=== PATIENT | female | born 1940 | race Caucasian/White ===

== ENCOUNTER 2018-12-28 13:02 | Emergency (ER) | payer OTHER ==
[~2018-12-28] VITALS: Ht 157.5 cm; Wt 77.1 kg
[2018-12-28] MEDS ORDERED: NEXIUM40 MG PO (13:24)
[2018-12-28] MEDS ORDERED: PAXIL10 MG PO (13:25)
[2018-12-28] MEDS ORDERED: NORVASC5 MG PO (13:25)
[2018-12-28] MEDS ORDERED: NYSTATIN1 EA10 TOP (13:25)
[2018-12-28] MEDS ORDERED: XANAX 0.5 MG0.5 MG PO (13:25)
[2018-12-28] MEDS ORDERED: NORCO 5-325 TA1 EACH PO (13:26)
[2018-12-28 13:58] LABS: ABSOLUTE BASOPHILS 0.1 thou/uL (0.0-0.2); ABSOLUTE EOSINOPHILS 0.1 thou/uL (0.0-0.7); ABSOLUTE LYMPHOCYTES 1.8 thou/uL (0.8-5.3); ABSOLUTE MONOCYTES 0.8 thou/uL (0.0-1.2); ABSOLUTE NEUTROPHILS 3.1 thou/uL (1.6-8.1); BASOPHILS 1.3 %; EOSINOPHILS 2.1 %; HEMATOCRIT 38.5 % (37.0-47.0); HEMOGLOBIN 12.7 gm/dL (12.0-15.0); LYMPHOCYTES 29.9 %; MCH 28.1 pg (26.0-34.0); MCHC 33.1 g/dL (28.0-37.0); MONOCYTES 14.2 %; MPV 7.8 fl. (7.2-11.1); NUCLEATED RBCS 0 /100WBC; PLATELET COUNT* 287 thou/uL (150-400); POLYS 52.5 %; RBC 4.53 mil/uL (4.20-5.00); RDW-CV 14.2 % (10.5-14.5); WBC 5.9 thou/uL (4.0-11.0)
[2018-12-28 14:06] LABS: ANION GAP 9 mmol/L (7-16); BUN 19 mg/dL (7-18); CALCIUM 9.2 mg/dL (8.5-10.1); CHLORIDE 105 mmol/L (98-107); CO2 26 mmol/L (21-32); GLUCOSE 122 mg/dL (70-99); POTASSIUM 4.1 mmol/L (3.5-5.1); SODIUM 140 mmol/L (136-145)
[2018-12-28 14:08] LABS: PROTIME 10.7 Seconds (9.20-11.50)
[2018-12-28 14:15] LABS: ALBUMIN 3.6 g/dL (3.4-5.0); ALKALINE PHOSPHATASE 71 U/L (46-116); LIPASE 161 U/L (73-393); SGOT 34 U/L (15-37); SGPT 27 U/L (30-65); TOTAL BILIRUBIN 0.4 mg/dL (<0.1-1.0); TOTAL PROTEIN 7.4 g/dL (6.4-8.2); TROPONIN-I LEVEL <0.06 ng/mL (<0.06)
--- NOTE | 2018-12-28 15:19 | EKG ---
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
[2018-12-28 15:42] LABS: URINE BILIRUBIN NEGATIVE (Negative); URINE BLOOD NEGATIVE (Negative); URINE CLARITY CLEAR; URINE COLOR YELLOW; URINE GLUCOSE-RANDOM NEGATIVE (Negative); URINE KETONES NEGATIVE (Negative); URINE LEUKOCYTES-REFLEX NEGATIVE (Negative); URINE PROTEIN NEGATIVE (Negative); URINE SPECIFIC GRAVITY 1.015 (1.005-1.030)
[2018-12-28 15:43] LABS: URINE NITRITE-REFLEX POSITIVE (Negative)
[2018-12-28 15:53] LABS: BACTERIA-REFLEX >30 Many /HPF (None Seen); HYALINE CASTS 0-3 Few /LPF (None Seen); MUCUS None Seen strn/LPF (None Seen); SQUAMOUS >10 Many /LPF (0-3)
[2018-12-28 15:54] LABS: CRYSTALS None Seen /LPF (None Seen); URINE RBC None Seen /HPF (0-2); URINE WBC-REFLEX 0-5 Rare /HPF (0-5)
[2018-12-28] MEDS ORDERED: KEFLEX500 M1 PO (16:20)
[2018-12-28 17:25] VITALS: BP 131/72
== END 2018-12-28 17:26 | disposition home or self-care (01) ==
LOC: M.ERS 13:02
PROVIDERS: Nurse Practitioner Family
DX: N39.0 Urinary tract infection, site not specified (principal); I10 Essential (primary) hypertension; Z85.3 Personal history of malignant neoplasm of breast; Z90.12 Acquired absence of left breast and nipple

== ENCOUNTER 2019-11-12 08:32 | Inpatient (IN) | payer MEDICARE ==
[2019-11-12] VITALS (48 sets, daily range): BP systolic 75–156; BP diastolic 39–106
[~2019-11-12] VITALS: Ht 154.9 cm; Wt 75.6 kg
[~2019-11-12 08:32] MED LIST: KEFLEX500 M1 PO; NEXIUM40 MG PO; NORCO 5-325 TA1 EAC2 PO; NORVASC5 MG PO; NYSTATIN1 EA10 TOP; PAXIL10 MG PO; XANAX 0.5 MG0.5 MG PO
--- NOTE | 2019-11-12 08:52 | NUR ---
RT AT BEDSIDE ADMINISTERING BREATHING TREATMENT.
[2019-11-12 08:55] LABS: ABSOLUTE BASOPHILS 0.2 thou/uL (0.0-0.2); ABSOLUTE EOSINOPHILS 0.2 thou/uL (0.0-0.7); ABSOLUTE LYMPHOCYTES 3.7 thou/uL (0.8-5.3); ABSOLUTE MONOCYTES 1.6 thou/uL (0.0-1.2); ABSOLUTE NEUTROPHILS 9.9 thou/uL (1.6-8.1); BASOPHILS 1.2 %; EOSINOPHILS 1.4 %; HEMATOCRIT 44.5 % (37.0-47.0); LYMPHOCYTES 23.7 %; MCH 29.3 pg (26.0-34.0); MCHC 33.8 g/dL (28.0-37.0); MCV 86.9 fL (80.0-100.0); MONOCYTES 10.1 %; MPV 7.6 fl. (7.2-11.1); NUCLEATED RBCS 0 /100WBC; PLATELET COUNT* 484 thou/uL (150-400); POLYS 63.6 %; RBC 5.12 mil/uL (4.20-5.00); WBC 15.5 thou/uL (4.0-11.0)
[2019-11-12 09:05] LABS: CALCIUM 8.5 mg/dL (8.5-10.1); CREATININE 0.8 mg/dL (0.6-1.3); POTASSIUM 3.6 mmol/L (3.5-5.1)
[2019-11-12 09:14] LABS: ALBUMIN 4.1 g/dL (3.4-5.0); MAGNESIUM 2.1 mg/dL (1.8-2.4); TOTAL BILIRUBIN 0.6 mg/dL (<0.1-1.0); TOTAL PROTEIN 8.8 g/dL (6.4-8.2)
[2019-11-12 09:15] LABS: BE -8.8 mmol/L (-2 to +3); PO2 82.2 mmHg (75.0-100.0)
[2019-11-12 09:17] LABS: pH 7.135 (7.340-7.450)
[2019-11-12 10:02] LABS: URINE BILIRUBIN NEGATIVE (Negative); URINE BLOOD NEGATIVE (Negative); URINE CLARITY CLEAR; URINE COLOR YELLOW; URINE GLUCOSE-RANDOM NEGATIVE (Negative); URINE KETONES NEGATIVE (Negative); URINE LEUKOCYTES-REFLEX NEGATIVE (Negative); URINE PROTEIN 1+ (Negative); URINE SPECIFIC GRAVITY >= 1.030 (1.005-1.030); URINE UROBILINOGEN 0.2 E.U./dl (0.2-1.0)
[2019-11-12 10:03] LABS: URINE NITRITE-REFLEX POSITIVE (Negative)
[2019-11-12 10:10] LABS: SQUAMOUS 0-3 Few /LPF (0-3); URINE WBC-REFLEX 6-15 Few /HPF (0-5)
[2019-11-12 10:10] LABS: APTT 25.7 Seconds (25.0-31.3); PROTIME 10.7 Seconds (9.20-11.50)
[2019-11-12 10:11] LABS: CRYSTALS None Seen /LPF (None Seen); HYALINE CASTS 4-10 Moderate /LPF (None Seen); MUCUS 0-3 Light strn/LPF (None Seen); URINE RBC 0-2 Rare /HPF (0-2)
--- NOTE | 2019-11-12 10:16 | NUR ---
AT 09, DR. SOLANO AT BEDSIDE TO BEGIN INTUBATION ON PT BREATHING TREATMENT DID NOT HELP PT; O2 SAT ON NON REBREATHER AT 15 LITERS WAS 90%. 10 MG OF ETOMIDATE ADMINISTERED BY THIS NURSE AT 0929 WELL 100 MG OF SUCCINYLCHOLINE THROUGH IV IN RIGHT HAND. 7.5 ET TUBE PLACED 21 AT THE LIP BY DR. SOLANO AT 0930. GOOD COLOR CHANGE ON CO2 SENSOR. VITALS AT 09: 146/78, HR 87, RR 34, AND 87% BVM. AFTER INTUBATION PT O2 INCREASED TO 97% ON VENTILATOR. ONCE FRANKLIN WAS PLACED, PT STARTED BITING ET TUBE. THIS NURSE ADMINISTERED 5 MG OF VERSED AT 0942. RT AT BEDSIDE IN-LINE SUCTIONING, PINK THIN FLUIDS RETURNED. AT 0946, PT CONTINUING TO BITE TUBE AND MARLOW IT. ETOMIDATE [address] MUKHERJEE VERBAL ORDERS. VITAL SIGNS AT 0950: 97/60, HR 106, 95% ON VENT, AND RR 23. VERSED DRIP ARRIVED AT 0956, THIS NURSE STARTED DRIP AT 5 MG/HR. DUE TO LOW BP, IV FLUIDS STARTED WIDE OPEN AT THIS TIME WELL. PT GIVEN WARM BLANKET AND IS LAYING IN BED, HOB SEMI FOWLERS, EYES CLOSED.
--- NOTE | 2019-11-12 10:16 | NUR ---
DR. SOLANO IN ROOM BEGINNING CENTRAL LINE PLACEMENT.
--- NOTE | 2019-11-12 10:35 | NUR ---
DR. SOLANO PLACED CENTRAL LINE, RIGHT SIDE. BLOOD RETURN POSITIVE. RADIOLOGY CALLED FOR CONFIRMATION OF CENTRAL LINE PLACEMENT.
--- NOTE | 2019-11-12 10:55 | NUR ---
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 PT MOVING EXTREMITIES AND BUCKING TUBE. SOFT RESTRAINTS APPLIED TO BILATERAL UPPER EXTREMITIES.
--- NOTE | 2019-11-12 11:11 | NUR ---
AT 0830 RECEIVED REPORT FROM EMT-P AT [facility]. PT HAS A NRB MASK IN PLACE WITH LABORED BREATHING. PT O2 SAT REPORTED TO BE IN THE 80'S ON SCENE. PT IS ONLY ABLE TO SPEAK IN ONE WORD SENTENCES. ASSISTED WITH TRIAGE PLACING PT IN A GOWN AND DOING VS. PT O2 SAT ON NRB MASK AT 15LPM IS 87%. DR. SOLANO NOTIFIED.
[2019-11-12 11:19] LABS: INFLUENZA A ANTIGEN Negative (Negative); INFLUENZA B ANTIGEN Negative (Negative)
--- NOTE | 2019-11-12 11:59 | NUR ---
REPORT GIVEN TO KEVIN WAY WHO IS TO ASSUME PT CARE INPATIENT NURSE.
[2019-11-12 14:50] LABS: BE -5.4 mmol/L (-2 to +3); PCO2 34.8 mmHg (35.0-45.0); PO2 82.4 mmHg (75.0-100.0); pH 7.361 (7.340-7.450)
--- NOTE | 2019-11-12 15:37 | 2DMMODE ---
[place] [address] 2 D/M-MODE ECHOCARDIOGRAM Name: BREANNA NUNEZ Mely Room: [address] IN .R.#: [id number] Admission: 11/12/19 Attend Phys: [place] Cardona, Discharge: Date of : 38 Date of Service: 11/12/19 1536 Report #: [id number] THIS REPORT FOR: cc: Nydia Henning Maggie M. DO Blick, David R. MD [facility] ~ APPROVED REPORT Study performed: 11/12/2019 13:56:35 EXAM: Comprehensive 2D, Doppler, and color-flow Echocardiogram Patient Location: In-Patient Room #: 006 Status: routine BSA: 1.72 HR: 68 bpm BP: 97/59 mmHg Rhythm: NSR Other Information Study Quality: Good Indications Respiratory failure 2D Dimensions IVSd: 9.12 (7-11mm) LVOT Diam: 21.88 (18-24mm) LVDd: 52.11 mm PWd: 9.08 (7-11mm) Ascending Ao: 35.16 (22-36mm) LVDs: 41.86 (25-40mm) Aortic Root: 29.81 mm Volumes Left Atrial Volume (Systole) LA ESV Index: 53.50 mL/m2 Aortic Valve AoV Peak Stevan.: 1.61 m/s AO Peak Gr.: 10.37 mmHg LVOT Max P.14 mmHg AO Mean Gr.: 5.91 mmHg LVOT Mean P.43 mmHg LVOT Max V: 0.89 m/s AO V2 VTI: 32.93 cm LVOT Mean V: 0.54 m/s DARWIN (VTI): 2.34 cm2 LVOT V1 VTI: 20.55 [place] [address] 2 D/M-MODE ECHOCARDIOGRAM Name: BREANNA NUNEZ Room: [address] IN .R.#: [id number] Admission: 11/12/19 Attend Phys: [place] Cardona, Discharge: Date of : 38 Date of Service: 11/12/19 1536 Report #: [id number] Mitral Valve MV Mean Gr.: 5.57 mmHg E/A Ratio: 1.01 MV Decel. Time: 303.33 ms MV E Max Stevan.: 1.46 m/s MV PHT: 87.97 ms MVA (PHT): 2.50 cm2 TDI E/Lateral E': 24.33 E/Medial E': 29.20 Medial E' Stevan.: 0.05 m/s Lateral E' Stevan.: 0.06 m/s Pulmonary Valve PV Peak Stevan.: 0.98 m/s PV Peak Gr.: 3.82 mmHg Tricuspid Valve RAP Estimate: 5.00 mmHg TR Peak Gr.: 22.64 mmHg RVSP: 27.00 mmHg PA Pressure: 27.00 mmHg Left Ventricle The left ventricle is normal size. severe hypokinesis of the distal anteroseptal wall and apex There is normal left ventricular wall thickness. Left ventricular systolic function is severely decreased. LVEF is 25-30%. This study is not technically sufficient to allow evaluation of the LV diastolic function. Right Ventricle The right ventricle is normal size. The right ventricular systolic function is normal. Atria Left atrium is severely dilated. The right atrium size is normal. Aortic Valve The Aortic valve is sclerotic. Trace aortic regurgitation. There is no aortic valvular stenosis. Mitral Valve There is mitral annular calcification. Mild mitral regurgitation. No evidence of mitral valve stenosis. Tricuspid Valve The tricuspid valve is normal in structure. [place] [address] 2 D/M-MODE ECHOCARDIOGRAM Name: BREANNA NUNEZ Room: [address] IN [facility]#: [id number] Admission: 11/12/19 Attend Phys: [place] Cardona, Discharge: Date of : 38 Date of Service: 11/12/19 1536 Report #: [id number] Pulmonic Valve The pulmonary valve is normal in structure. Mild pulmonic regurgitation. Great Vessels The aortic root is normal in size. IVC is not well visualized. Pericardium There is no pericardial effusion. <Conclusion> LVEF is 25-30%. severe hypokinesis of the distal anteroseptal wall and apex Left atrium is severely dilated. The Aortic valve is sclerotic. Mild mitral regurgitation. <ELECTRONICALLY SIGNED> By: Amos Car MD, FACC 11/12/19 1536 1536 1536 Amos Car MD, FACC /INF
--- NOTE | 2019-11-12 16:07 | EKG ---
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
--- NOTE | 2019-11-12 18:36 | NUR ---
PT REMAINS INTUBATED PER ORDERED SETTINGS.SEDATED WITH VERSED AND PRECEDEX PER PROTOCOL.PT BP SOFT SHORTLY AFTER ARRIVING TO THE UNIT-DOPAMINE STARTED PER ORDERS.ECHO COMPLETED.CARDIOLOGY CONSULT.40 MG LASIX ORDERED-ONLY 20 MG GIVEN DO TO PT BP NOT TOLERATING IT.NO APPARENT PAIN.MRSA SWAB COLLECTED.UA COLLECTED.SPUTUM COLLECTED.PT NOT TOLERATING BEING TURNED Q2 HOUR- BP DROPS.COVID PRECAUTIONS IN MAINTAINED UNTIL RESULTS COMEBACK.WILL CONTINUE TO MONITOR FOR DURATION OF SHIFT.ADMISSION COMPLETED TO THE BEST OF ABILITY DUE TO PT NOT BEING ABLE TO COMMUNICATE AND NO VISITORS ALLOWED.
[2019-11-13] VITALS (70 sets, daily range): BP systolic 95–122; BP diastolic 53–76
[2019-11-13 05:20] LABS: HEMATOCRIT 36.1 % (37.0-47.0); MCH 28.6 pg (26.0-34.0); MPV 7.5 fl. (7.2-11.1); NUCLEATED RBCS 0 /100WBC; RDW-CV 14.6 % (10.5-14.5); WBC 11.6 thou/uL (4.0-11.0)
[2019-11-13 05:48] LABS: ANION GAP 11 mmol/L (7-16); BUN 19 mg/dL (7-18); CALCIUM 8.1 mg/dL (8.5-10.1); CHLORIDE 105 mmol/L (98-107); CHOLESTEROL 175 mg/dL (<200); CO2 25 mmol/L (21-32); CREATININE 0.9 mg/dL (0.6-1.3); GLUCOSE 180 mg/dL (70-99); HDL CHOLESTEROL 41 mg/dL (>40); LDL CHOLESTEROL 118 mg/dL (<100); MAGNESIUM 1.6 mg/dL (1.8-2.4); PHOSPHORUS* 2.7 mg/dL (2.5-4.9); POTASSIUM 3.2 mmol/L (3.5-5.1); SODIUM 141 mmol/L (136-145); TC:HDL 4.3 Ratio (Not establshd); TRIGLYCERIDE 81 mg/dL (<150); TROPONIN-I LEVEL 0.13 ng/mL (<0.06); VLDL 16 mg/dL (<40)
[2019-11-13 05:49] LABS: SERUM ASSESSMENT Clear
[2019-11-13 05:51] LABS: HEMOGLOBIN 12.3 gm/dL (12.0-15.0); PLATELET COUNT* 304 thou/uL (150-400)
--- NOTE | 2019-11-13 06:12 | NUR ---
Pt remains intubated; impulsive at times, especially when coughing. VSS. Dopamine gtt weaned from 8 to 4 mcg. Precedex increased to 0.8 mcg. Versed gtt remains at 2 mg/hr. Good output overnight from adame, and BP remained stable throughout shift. Breath snds clear, and CXR this am shows improvement from yesterday. TF at 20 ml/hr; residuals of 55, 165, and 125 overnight. Hypoactive bowel snds. Running T of 100.6 axillary at 0310 this am. Will continue to monitor.
[2019-11-13 07:03] LABS: ABSOLUTE LYMPHOCYTES 0.8 thou/uL (0.8-5.3); ABSOLUTE MONOCYTES 0.2 thou/uL (0.0-1.2); ABSOLUTE NEUTROPHILS 10.6 thou/uL (1.6-8.1); PLATELET ESTIMATE ADEQUATE
--- NOTE | 2019-11-13 07:42 | CON ---
[address] [address] CONSULTATION Name: BREANNA NUNEZ Room: [address] ADM IN M.R.#: [id number] Admission: 11/12/19 Attend Phys: [place] Cardona MD Discharge: Date of : 38 Report #: [id number] THIS REPORT FOR: //name// cc: Nydia Henning Maggie M. DO ~ THIS REPORT FOR: //name// CC: [place] Henning DATE OF SERVICE: 11/12/2019 INFECTIOUS DISEASE CONSULTATION ATTENDING PHYSICIAN: [place] Cardona MD REASON FOR EVALUATION: Severe pneumonitis, complicated by respiratory failure. HISTORY OF PRESENT ILLNESS: Chart reviewed, the patient examined. This is a 78-year-old woman with history of breast cancer, no known lung disease, who had progressive dyspnea over the course of the last 2 days. She presented in urgent fashion and proceeded to have respiratory collapse, required emergent intubation. She is seen in the ICU. She is not responsive. She described as bloody sputum. It is not clear if she has had any fevers. Denies any particular exposure history. Additional evaluation, there is mildly elevated white count of 15.5. ABGs showed marked acidemia with pH 7.135, pCO2 of 65, and pO2 of 82.2 on a nonrebreather. Lactic acid was elevated at 3.6. Urinalysis is fairly unremarkable. Chest x-ray did show bilateral pulmonary infiltrates. Influenza antigen was negative and marginal urine output. She is empirically started on therapy, given azithromycin, piperacillin and tazobactam. MEDICATIONS: Include pantoprazole, enoxaparin, and ondansetron. PAST MEDICAL HISTORY: As described above, includes breast cancer with left mastectomy, hypertension, and cataracts. SOCIAL HISTORY: Nonsmoker. FAMILY HISTORY: Noncontributory. REVIEW OF SYSTEMS: Not obtainable. PHYSICAL EXAMINATION: GENERAL: She is critically ill. She is seen in the ICU. She is intubated in supine position, appears somewhat chronically ill. VITAL SIGNS: Temperature 97.6, pulse 81, respirations 18, blood pressure 97/59[place] [address] CONSULTATION Name: BERANNA NUNEZ Room: [address]#: [id number] Admission: 11/12/19 Attend Phys: [place] Cardona MD Discharge: Date of : 38 Report #: [id number] SKIN: Warm, dry, no rashes. HEENT: ET OG in place. NECK: Supple. LUNGS: Scattered coarse breath sounds. HEART: Regular. I do not appreciate murmur. ABDOMEN: Soft, nontender, and nondistended. EXTREMITIES: No cyanosis. GENITOURINARY AND RECTAL: Deferred. LABORATORY DATA: As described above. Initial lactic acid 1.6 and repeat was 1.2. Troponin is 0.16. Chest x-ray showed peripheral infiltrates bilaterally. Influenza antigen was negative. Electrolytes: Sodium 142, potassium 3.6, chloride 105, bicarbonate 26, anion gap of 11, and BUN and creatinine 17 and 0.8. Did have elevated AST of 43, ALT of 29, total protein 8.8, and albumin 4.1. CBC: White count of 15.5, H and H 15.0 and 44.5, and platelets of 484. ASSESSMENT AND PLAN: Severe pneumonitis, complicated by respiratory failure. This certainly can exclude COVID based on the clinical presentation, although it was a fairly abrupt onset. Continue broad-spectrum antimicrobial therapy including coverage for bacterial pathogens. Await COVID results. The turn arounds have been somewhat quicker last 24 hours. Continue supportive measures. Certainly, she is critically ill and would have expected prolonged recovery. <ELECTRONICALLY SIGNED> By: Reji Dean MD 11/13/19 0742 1316 1336Jobeba Dean MD /nt
[2019-11-13 10:24] LABS: BE 0.1 mmol/L (-2 to +3); PCO2 32.5 mmHg (35.0-45.0); PO2 69.5 mmHg (75.0-100.0); pH 7.469 (7.340-7.450)
--- NOTE | 2019-11-13 18:12 | NUR ---
PT REMAINS INTUBATED PER ORDERED SETTING.SEDATED WITH VERSED AND PRECEDEX.PT REMAINS ON DOPAMINE FOR PRESSURE SUPPORT.PT HAD SUCCESSFUL WEANING TRIAL AND EXTUBATED @ 1720.PT PLACED ON 4L O2 NC WITH O2 SAT 97%.PT TO REMAINS NPO UNTIL 2119 THEN WILL ADVANCE TO ICE CHIPS TO START.PT RECEIVED LASIX THIS SHIFT WITH ADEQUATE OUTPUT.CALL LIGHT AND FALL PRECAUTIONS IN PLACE.WILL CONTINUE TO MONITOR FOR DURATION OF SHIFT.
[2019-11-14] VITALS (27 sets, daily range): BP systolic 101–134; BP diastolic 33–76
[2019-11-14 02:06] LABS: GLYCOHEMOGLOBIN (HGB A1C) 5.9 % (4.8-5.6)
[2019-11-14 04:03] LABS: ABSOLUTE BASOPHILS 0.1 thou/uL (0.0-0.2); ABSOLUTE LYMPHOCYTES 1.8 thou/uL (0.8-5.3); ABSOLUTE MONOCYTES 1.1 thou/uL (0.0-1.2); ABSOLUTE NEUTROPHILS 8.3 thou/uL (1.6-8.1); BASOPHILS 0.5 %; EOSINOPHILS 0.2 %; HEMATOCRIT 33.7 % (37.0-47.0); HEMOGLOBIN 11.2 gm/dL (12.0-15.0); LYMPHOCYTES 15.7 %; MCH 28.2 pg (26.0-34.0); MCHC 33.4 g/dL (28.0-37.0); MCV 84.4 fL (80.0-100.0); MONOCYTES 9.8 %; MPV 7.6 fl. (7.2-11.1); NUCLEATED RBCS 0 /100WBC; PLATELET COUNT* 266 thou/uL (150-400); POLYS 73.8 %; RBC 3.99 mil/uL (4.20-5.00); RDW-CV 14.4 % (10.5-14.5); WBC 11.3 thou/uL (4.0-11.0)
[2019-11-14 04:24] LABS: ALBUMIN 2.9 g/dL (3.4-5.0); CALCIUM 7.8 mg/dL (8.5-10.1); CREATININE 0.8 mg/dL (0.6-1.3); POTASSIUM 3.1 mmol/L (3.5-5.1); TOTAL BILIRUBIN 0.6 mg/dL (<0.1-1.0); TOTAL PROTEIN 6.4 g/dL (6.4-8.2)
[2019-11-14 11:38] LABS: BE -2.1 mmol/L (-2 to +3); PCO2 37.8 mmHg (35.0-45.0); PO2 85.1 mmHg (75.0-100.0); pH 7.392 (7.340-7.450)
--- NOTE | 2019-11-14 17:06 | NUR ---
PT IS A/O X4,PT HAS BEEN TACHYPNEIC IN THE 30-40s THROUGHOUT WHOLE SHIFT.PHYSICIAN NOTIFIED THIS AM WITH NEW ORDERS RECEIVED.PT GIVEN 80 MG LASIX IN TOTAL ON THIS SHIFT WITH ADEQUATE OUTPUT.ANXIETY MEDICATIONS ORDERED.NO C/O PAIN.POTASSIUM REPLACED.PT TOLERATING CLEAR LIQUIDS AND SWALLOWING PILLS.COVID PRECAUTIONS MAINTAINED UNTIL RESULTS COMEBACK.CALL LIGHT AND FALL PRECAUTIONS IN PLACE.WILL CONTINUE TO MONITOR FOR DURAITON OF SHIFT.
[2019-11-15] VITALS (18 sets, daily range): BP systolic 105–133; BP diastolic 57–81
[2019-11-15 04:50] LABS: ABSOLUTE BASOPHILS 0.1 thou/uL (0.0-0.2); ABSOLUTE EOSINOPHILS 0.1 thou/uL (0.0-0.7); ABSOLUTE MONOCYTES 0.9 thou/uL (0.0-1.2); ABSOLUTE NEUTROPHILS 5.6 thou/uL (1.6-8.1); BASOPHILS 1.3 %; EOSINOPHILS 1.4 %; HEMATOCRIT 34.7 % (37.0-47.0); HEMOGLOBIN 11.7 gm/dL (12.0-15.0); LYMPHOCYTES 22.7 %; MCH 28.4 pg (26.0-34.0); MCHC 33.5 g/dL (28.0-37.0); MCV 84.8 fL (80.0-100.0); MONOCYTES 10.6 %; MPV 7.3 fl. (7.2-11.1); NUCLEATED RBCS 0 /100WBC; PLATELET COUNT* 261 thou/uL (150-400); RDW-CV 14.6 % (10.5-14.5); WBC 8.8 thou/uL (4.0-11.0)
[2019-11-15 05:35] LABS: ALBUMIN 3.2 g/dL (3.4-5.0); CREATININE 0.9 mg/dL (0.6-1.3); POTASSIUM 3.3 mmol/L (3.5-5.1); TOTAL BILIRUBIN 0.9 mg/dL (<0.1-1.0)
--- NOTE | 2019-11-15 07:02 | NUR ---
PT. PROGRESSING WELL TOWARDS GOALS. HAS REMAINED ALERT AND ORIENTED, PLEASANT. 4L O2. TOLERATING THIN LIQUIDS AND PO MEDS WELL WITHOUT DIFFICULTY, DIET ADVANCED TO REGULAR. PT. IS ABLE TO TURN SELF WITH REMINDER TO SHIFT WEIGHT. SINUS RHYTHM WITH BBB. REPORT GIVEN TO ONCOMING SHIFT.
--- NOTE | 2019-11-15 10:58 | CON ---
[address] [address] CONSULTATION Name: BREANNA NUNEZ Room: [address] IN M.R.#: [id number] Admission: 11/12/19 Attend Phys: [place] Cardona MD Discharge: Date of : 38 Report #: [id number] THIS REPORT FOR: //name// cc: Nydia Henning Maggie M. DO ~ THIS REPORT FOR: //name// CC: [place] Henning DO DATE OF SERVICE: 11/12/2019 CARDIOLOGY CONSULTATION HISTORY OF PRESENT ILLNESS: The patient is a 78-year-old single white female who was brought to the Emergency Room today complaining of being short of breath. The patient has no previous history of heart disease. The history is obtained from the patient's son. There are no old records available. She apparently has been short of breath for the past 2 days. She has been weak and sleeps a lot. She woke her son up this morning complained of being short of breath. When paramedics received the patient, her saturation was only 7%. She was brought to the [facility] by ambulance. Because of respiratory distress, she was intubated. I was asked to see her for further evaluation and treatment. According to family, she has no history of myocardial infarction, chest pain, palpitations or recent syncope or edema. She has not been exposed to anyone having problems at this time. PAST MEDICAL HISTORY: She has had a previous left mastectomy for breast cancer. She has a history of hypertension, cataract extraction. MEDICATIONS: Include Nexium, amlodipine, Xanax, Paxil. ALLERGIES: She has no known drug allergies. FAMILY HISTORY: Negative for heart disease. SOCIAL HISTORY: She is , lives with son in [place]. No smoking. Rarely drinks alcohol. REVIEW OF SYSTEMS: No history of stroke, asthma, liver disease, kidney disease. She does have incontinence. No chronic skin condition. PHYSICAL EXAMINATION: GENERAL: Revealed an elderly female lying in bed. She was on a ventilator. VITAL SIGNS: Her blood pressure 130/70, her pulse is 90. [place] [address] CONSULTATION Name: BREANNA NUNEZ Room: [address]#: [id number] Admission: 11/12/19 Attend Phys: [place] Cardona MD Discharge: Date of : 38 Report #: [id number] HEENT: She is anicteric. Conjunctivae are pink. Mucous membranes were moist. NECK: Veins do not appear distended. CHEST: Clear to auscultation. CARDIOVASCULAR: Regular rate and rhythm, no murmur. ABDOMEN: Soft. EXTREMITIES: Had no edema. Dorsalis pedis pulse cannot be palpated. SKIN: Cool and dry. RADIOLOGICAL DATA: She has not had an ECG at this time. Her chest x-ray showed bilateral pulmonary infiltrates. LABORATORY WORK: Sodium 142, BUN 17, creatinine 0.8. Liver function studies were normal. Troponin is 0.16. BNP 1600. Her white blood cell count 15.5, hemoglobin 15. Echocardiogram at the bedside today showed an ejection fraction only 30% with anteroapical hypokinesis. IMPRESSION AND RECOMMENDATIONS: 1. Flash pulmonary edema. Recommend Lasix. 2. History of breast cancer. 3. Hypertension. The patient is on a calcium mehran. 4. Elevated blood sugar. Rule out diabetes. <ELECTRONICALLY SIGNED> By: Amos Car MD, FACC 11/15/19 1058 1503 1517Datrung Car MD, FACC /nt
--- NOTE | 2019-11-15 15:19 | NUR ---
ICU ROUNDING: CM SPOKE TO THE RN IN-CHARGE OF THE PT TO DISCUSS THE PT'S CURRENT STATUS, AND TO DISCUSS ANY ISSUES AND CONCERNS THAT SHE MAY HAVE THAT CM MAY BE ABLE TO ASSIST WITH. RN IN-CHARGE OF THE PT INFORMS THAT THE PT'S COVID-19 TESTING IS NEGATIVE, AND PT'S ISOLATION STATUS HAS BEEN DOWNGRADED TO DROPLET. PHYSICIAN HAS ORDERED PT/OT AND THIS WILL DETERMINE DISCHAGE PLANNING FOR HOME WITH HH VS SNF. PT IS A HEART FAILURE PT AND WILL NEED A F/U PCP APPOINTMENT AT D/C. CM WILL REMAIN AVAILABLE TO ASSIST AND FOLLOW TO ASSIST WITH DISCHARGE PLANNING NEEDS.
--- NOTE | 2019-11-15 18:21 | NUR ---
PT TO TRANSFER TO ROOM 220. FRANKLIN CATHETER REMOVED.
[2019-11-16 04:10] VITALS: BP 107/57
[2019-11-16 05:36] LABS: CALCIUM 8.7 mg/dL (8.5-10.1); POTASSIUM 3.5 mmol/L (3.5-5.1)
--- NOTE | 2019-11-16 05:56 | NUR ---
PT ALERT AND ORIENTED X4. VSS ON 4L NC. PT DOES NOT WEAR O2 @ HOME. MEDS GIVEN PER EMAR. PT SLEPT WELL THIS SHIFT. RT SUBCLAVIAN TRIPPLE LUMEN CENTRAL LINE SL. VOIDS VIA BSC. SOME INCONTINENCE. FALL PRECAUTION IN PLACE. CALL LIGHT WITHIN REACH. HOURLY ROUNDINGS MADE. WILL CONTINUE TO MONITOR.
[2019-11-16 07:00] VITALS: BP 126/77
--- NOTE | 2019-11-16 07:42 | NUR ---
INITAL ASSESSMENT COMPLETED CHARTED. VSS. PT IS M/S STATUS, NOT MONITORED ON TELEMETRY. PT UP TO BSC WITH SBA AND WALKER AND GAIT BELT. PT DENIES PAIN, SOA, N/V/D. PT DOES C/O BEING LIGHT HEADED WHEN UP. NO OTHER CONCERNS AT THIS TIME. HOURLY ROUNDING AND FALL PRECAUTIONS IN PLACE FOR PT SAFETY. CLWR.
[2019-11-16 12:00] VITALS: BP 117/66
--- NOTE | 2019-11-16 13:44 | NUR ---
CM spoke with son via phone. Pt resides at home with son. Independent, son drives. No DME. No hx of HH or SNF. Covid negative. Spoke with , anticipate dc in 1-2 days to either home with HH or SNF/rehab. Therapy evals pending. Following.
[2019-11-16 15:00] VITALS: BP 129/76
[2019-11-16 19:55] VITALS: BP 129/69
[2019-11-17] VITALS (16 sets, daily range): BP systolic 114–136; BP diastolic 61–96
[2019-11-17 04:25] LABS: ABSOLUTE BASOPHILS 0.1 thou/uL (0.0-0.2); ABSOLUTE EOSINOPHILS 0.3 thou/uL (0.0-0.7); ABSOLUTE LYMPHOCYTES 1.9 thou/uL (0.8-5.3); ABSOLUTE MONOCYTES 1.6 thou/uL (0.0-1.2); ABSOLUTE NEUTROPHILS 6.6 thou/uL (1.6-8.1); BASOPHILS 1.1 %; EOSINOPHILS 2.5 %; HEMATOCRIT 34.6 % (37.0-47.0); HEMOGLOBIN 11.6 gm/dL (12.0-15.0); LYMPHOCYTES 17.8 %; MCH 28.6 pg (26.0-34.0); MCHC 33.6 g/dL (28.0-37.0); MCV 85.1 fL (80.0-100.0); MONOCYTES 15.1 %; MPV 8.4 fl. (7.2-11.1); NUCLEATED RBCS 0 /100WBC; PLATELET COUNT* 276 thou/uL (150-400); POLYS 63.5 %; RBC 4.07 mil/uL (4.20-5.00); RDW-CV 14.6 % (10.5-14.5); WBC 10.5 thou/uL (4.0-11.0)
[2019-11-17 04:40] LABS: CALCIUM 8.5 mg/dL (8.5-10.1); POTASSIUM 3.5 mmol/L (3.5-5.1)
--- NOTE | 2019-11-17 05:40 | NUR ---
patient partially progressing towards goals: patient utilizing incentive spirometer as directed. patient hopeful for discharge soon. patient denies pain and discomfort. resting well this shift. was incontinent of urine after administration of diuretics. call light within reach
--- NOTE | 2019-11-17 16:17 | CARD ---
[address] [address] CARDIAC CATH REPORT Name: MAYRABREANNA Mely Room: [address] IN ..#: [id number] Admission: 11/12/19 Attend Phys: Washington Cardona MD Discharge: Date of : 38 Report #: [id number] THIS REPORT FOR: //name// cc: Nydia Henning Maggie M. DO ~ APPROVED REPORT Study performed: 11/17/2019 12:42:13 Patient Details Patient Status: In-Patient Room #: 220 The patient is a 79 year-old female Event Personnel Brenden Raphael Shoe Dyer, Erlinda Johnston RN RN, Ariel Lopez Kramer, Jessie RTR Monitor Procedures Performed Art Access - R femoral artery Left Heart Cath w/or w/o Coronaries ISRAEL Place w/wo Plasty Single LAD ISRAEL Place w/wo Plasty Addl BR DIAG 1 Hemostasis w/ Angioseal Indication Non-STEMI , Dyspnea, Heart failure, Cardiomyopathy Risk Factors Hypercholesterolemia Admission/Lab Medications/Medications given during procedure Angiomax bolus and infusion Procedure Narrative The patient was brought urgently to the Cardiac Catheterization Laboratory and was prepped and draped in a sterile manner. The right femoral was infiltrated with 2% Lidocaine subcutaneous anesthesia. A Edison 6 FR sheath was inserted into the right femoral artery. Coronary angiography was performed using coronary diagnostic catheters. The right coronary system was accessed and visualized with a Diagnostic 6 Fr JR 4 catheter. The left coronary system was accessed and visualized with a Diagnostic 6 Fr JL 4 catheter. The left ventricle was accessed and visualized with a Diagnostic Pigtail 6 Fr catheter. Left ventricular/Aortic Valve gradient assessed via catheter pullback. Pre-demployment femoral angiogram was performed . Closure device was deployed with a Fr Angioseal STS 6Fr. The patient tolerated the procedure well and [place] [address] CARDIAC CATH REPORT Name: BREANNA NUNEZ Room: [address] IN [facility]#: [id number] Admission: 11/12/19 Attend Phys: Washington Cardona MD Discharge: Date of : 38 Report #: [id number] associated with the procedure. There was no hematoma. Intraoperative Conscious Sedation No Sedation given. Case start time was 13:34 and case end was 14:21. Fluoro Time: 14.6 minutes Dose: DAP [id number] cGycm2 1890 mGy Contrast Type and Amount: Visipaque 250 ml Coronary Angiography The patient's coronary anatomy is right dominant. Diagnostic Cath Left Main 0% narrowing LAD 90% mid vessel stenosis with 75% tubular first diagonal stenosis Circumflex 30% mid vessel narrowing Right Coronary Large dominant vessel with 40% mid vessel narrowing Left Ventriculography Left Ventriculography was not performed. Hemodynamics The aortic pressure is 143/72 mmHg with a mean of 92 mmHg. The left ventricular pressure is 138/5 mmHg with a mean of mmHg. The left ventricular end diastolic pressure is 28 mmHg. There was no gradient across the aortic valve upon pullback. PCI Technique Lesion Anticoagulation was achieved with Angiomax Drip. Patient was preloaded with Angiomax IV 11 ml. Percutaneous coronary intervention was performed on the first diagnonal branch segment. The lesion stenosis prior to intervention was 75% with LOUIS 3 flow. A 6F XB LAD 3.5 Guide Catheter was used to engage the left ostium. A IG: BMW 190cm Interventional Guidewire was used to cross the lesion. BALLOON DILATION A Balloon catheter Trek RX 2.5 X 12 was inserted and inflated up to 14.00atm for 11seconds. Additional Inflation: 14.00atm for 9seconds. Additional Inflation: 12.00atm for 14seconds. STENT DEPLOYMENT A drug-eluting stent Bryan RX Stent 2.5X15mm was inserted and inflated up to 12.00atm for 7seconds. Additional Inflation: 12.00atm [place] [address] CARDIAC CATH REPORT Name: BREANNA NUNEZ Room: [address] IN .R.#: [id number] Admission: 11/12/19 Attend Phys: Washington Cardona MD Discharge: Date of : 38 Report #: [id number] for 5seconds. Final angiography reveals 0 % stenosis with LOUIS 3 flow. PCI Technique Lesion 2 Percutaneous Coronary Intervention was performed on the mid left anterior descending artery segment. Patient was preloaded with Angiomax IV 3 ml. The lesion stenosis prior to intervention was 90% with LOUIS 3 flow. A 6F XB LAD 3.5 Guide Catheter was used to engage the left ostium. A IG: ProwaterFlex 180CM Interventional Guidewire was used to cross the lesion. Balloon Dilation A Balloon catheter Trek RX 2.25 X 12 was inserted and inflated up to 14.00atm for 9seconds. Additional Inflation: 10.00atm for 5seconds. Additional Inflation: 12.00atm for 6seconds. Stent Deployment A drug-eluting stent Bryan RX Stent 2.29L95mu was inserted and inflated up to 14.00atm for 9seconds. Additional Inflation: 15.00atm for 9seconds. Post Stent Deployment Balloon Dilation A Balloon catheter NC Trek RX 2.5 X 12 was inserted and inflated up to 12.00atm for 8seconds. Additional Inflation: 14.00atm for 7seconds. Additional Inflation: 18.00atm for 9seconds. Final angiography reveals 0 % stenosis with LOUIS 3 flow. Conclusion #1 non-ST segment elevation myocardial infarction #2 coronary artery disease characterized by the following: A 90% mid LAD stenosis with 75% tubular first diagonal stenosis B 30% narrowing in the midportion of the nondominant circumflex C large dominant right coronary artery with 40% mid vessel narrowing #3 significant elevation of left ventricular end-diastolic pressure rest #4 successful percutaneous coronary intervention with deployment of [address] [place] [address] CARDIAC CATH REPORT Name: BREANNA NUNEZ Room: [address] IN M.R.#: [id number] Admission: 11/12/19 Attend Phys: Washington Cardona MD Discharge: Date of : 38 Report #: [id number] a drug-eluting stent at the site of 90% mid LAD stenosis with 0% residual narrowing and LOUIS 3 flow to the distal vessel #5 successful percutaneous coronary intervention with deployment of a drug-eluting stent at the site of tubular 75% first diagonal stenosis with 0% residual narrowing and LOUIS 3 flow to the distal vessel Recommendations Cardiac Risk Reduction Program Aggressive Medical Therapy Medications Administered Aspirin (any) Ticagrelor Diagnostic Cath Approved by: Brenden Raphael MD Date/Time: 11/17/2019 16:13:08 <ELECTRONICALLY SIGNED> By: Brenden Raphael MD, [facility] 11/17/19 1615 1615 1615Brenden Raphael MD, FACC /INF
--- NOTE | 2019-11-17 17:04 | EKG ---
[place] [address] ELECTROCARDIOGRAM REPORT Name: BREANNA NUNEZ Room: [address] ADM IN M.R.#: [id number] Admission: 11/12/19 Attend Phys: Washington Cardona, Discharge: Date of : 38 Date of Service: 11/17/19 1535 Report #: [id number] THIS REPORT FOR: //name// [facility] Test Date: 2019-11-17 Test Time: 15:35:07 Pat Name: BREANNA NUNEZ Department: Room: [address] Gender: F Cooperative Education Coordinator: : 1940 Requested By: Brenden Raphael Order Number: [id number] Nadege MD: Elgin Carlson Measurements Intervals [place] Rate: 96 P: 53 [place]: 154 QRS: -48 QRSD: 148 T: 90 QT: 390 QTc: 493 Interpretive Statements Sinus rhythm LVH with repolarization abnormality Compared to ECG 11/12/2019 15:57:17 Heart rate has increased Electronically Signed On 11-17-2019 17:03:00 CDT by Elgin Carlson [email or web address] <ELECTRONICALLY SIGNED> By: Elgin Carlson MD, FACC 11/17/19 1703 1535 1535 Elgin Carlson MD, [facility] /EPI
--- NOTE | 2019-11-17 20:09 | NUR ---
PT VSS, SR W/ BBB AND PVCS ON TELE, NC@4L TITRATED DOWN TO ROOM AIR, UP WITH ONE AND A WALKER, LEFT LIMB ALERT, RIGHT TRIPLE LUMEN PICC, PATIENT TAKEN FOR HEART CATH, 2 STENTS PLACED, RIGHT GROIN SITE DRESSED, DRESSING CLEAN DRY AND INTACT, NO BLEEDING OR HEMATOMA. POST CATH VITALS STABLE, POST CATH EKG READ ACUTE ND, DR GOMEZ NOTIFIED. HE REVIEWED EKG AND TALKED WITH PATIENT AND DETERMINED NO CAUSE FOR ALARM AFTER READING, BUT IF PATIENT BECAME SYMPTOMATIC CALL HIM. PT REMAINED ASYMPTOMATIC. HOURLY ROUNDING PERFORED, POSSESSIONS AND CALL LIGHT WITHIN REACH.
[2019-11-18 00:07] VITALS: BP 116/62
[2019-11-18 03:54] LABS: HEMATOCRIT 36.2 % (37.0-47.0); HEMOGLOBIN 12.2 gm/dL (12.0-15.0); MCH 28.5 pg (26.0-34.0); MCHC 33.7 g/dL (28.0-37.0); MCV 84.6 fL (80.0-100.0); MPV 8.5 fl. (7.2-11.1); RBC 4.28 mil/uL (4.20-5.00); RDW-CV 14.6 % (10.5-14.5); WBC 12.7 thou/uL (4.0-11.0)
[2019-11-18 04:15] VITALS: BP 143/65
[2019-11-18 04:32] LABS: ALBUMIN 3.4 g/dL (3.4-5.0); CREATININE 1.1 mg/dL (0.6-1.3); POTASSIUM 3.1 mmol/L (3.5-5.1); TOTAL BILIRUBIN 1.2 mg/dL (<0.1-1.0); TOTAL PROTEIN 7.7 g/dL (6.4-8.2)
[2019-11-18 04:36] LABS: TROPONIN-I LEVEL 2.46 ng/mL (<0.06)
--- NOTE | 2019-11-18 04:44 | NUR ---
PATIENT SLEPT WELL DURING THIS SHIFT. PT HAD ANGIOGRAM YESTERDAY. RT GROIN SITE WITH 4X4 AND TAGADERM. DSG C/D/I, AREA SOFT, NOT WARM. TROPONIN HIGH THIS AM AT 2.46; EXPECTED RESULTS. PT WITH RT TRIPLE LUMAN PICC LINE. ABLE TO FLUSH/DRAW LINE WITH NO RESISTANCE. PT WITH FRANKLIN TO DEPENDENT DRAIN WITH YELLOW URINE. PT WITH NIGHT SWEATS X2 DURING THIS SHIFT; NEW LINENS AND GOWN PROVIDED. PT DENIES PAIN/NAUSEA. PT ON O2 @ 2 LITERS AT NIGHT BUT RA DURING THE DAY. FREQUENTLY USED ITEMS AND CALL LIGHT WITHIN REACH. SIDERAILS UPX2 AND BED ALARM ON. WILL CONTINUE TO MONITOR.
[2019-11-18 08:13] VITALS: BP 125/70
[2019-11-18] MEDS ORDERED: CARVEDILOL3.125 MG PO (10:30)
[2019-11-18] MEDS ORDERED: BRILINTA90 MG PO (10:30)
[2019-11-18] MEDS ORDERED: SPIRONOLACTONE25 MG PO (10:31)
[2019-11-18] MEDS ORDERED: ASPIR 8181 MG PO (10:32)
[2019-11-18] MEDS ORDERED: CEFDINIR300 MG PO (10:34)
[2019-11-18 11:36] VITALS: BP 125/70
--- NOTE | 2019-11-18 11:54 | NUR ---
PT WAS ABLT TO VOID POST REMOVAL OF FRANKLIN CATHETER.
[2019-11-18] MEDS ORDERED: LISINOPRIL5 MG PO (12:11)
--- NOTE | 2019-11-18 12:36 | NUR ---
DISCONTINUE CENTRAL LINE AND TELE. PT UDERSTANDS ALL FOLLOW UP ORDERS. PT DISCHARGED TO HOME VIA PRIVATE VEHICLE.
--- NOTE | 2019-11-18 12:52 | EKG ---
[place] [address] ELECTROCARDIOGRAM REPORT Name: MAYRABREANNA Boone Room: [address] DIS IN M.R.#: [id number] Admission: 11/12/19 Attend Phys: Washington Cardona, Discharge: 11/18/19 Date of : 38 Date of Service: 11/18/19 0810 Report #: [id number] THIS REPORT FOR: //name// [facility] Test Date: 2019-11-18 Test Time: 08:10:42 Pat Name: BREANNA NUNEZ Department: Room: [address] Gender: F Wood Getter: : 1940 Requested By: Brenden Raphael Order Number: [id number] Reading MD: Brenden Raphael Measurements Intervals [place] Rate: 96 P: 67 [place]: 175 QRS: -51 QRSD: 141 T: 112 QT: 405 QTc: 512 Interpretive Statements Sinus rhythm LVH with IVCD, LAD and secondary repol abnrm Prolonged QT interval Baseline wander in lead(s) II,III,aVR,aVF,V6 Compared to ECG 11/17/2019 15:35:07 Prolonged QT interval now present Electronically Signed On 11-18-2019 12:51:12 CDT by Brenden Raphael [email or web address] <ELECTRONICALLY SIGNED> By: Brenden Raphael MD, [facility] 11/18/19 1251 9 9 Brenden Raphael MD, [facility] /EPI
== END 2019-11-18 12:30 | disposition home or self-care (01) | DRG 853 ==
LOC: M.ERS 08:32 → M.2W 09:53 → M.TBA-ER 09:53 → M.ICU 09:53 → M.2W 11-15 18:40
PROVIDERS: Internal Medicine; Internal Medicine Cardiovascular Disease; Internal Medicine Pulmonary Disease; Personal Emergency Response Attendant; ADMIT Internal Medicine
PROC: 05H533Z Insertion of Infusion Device into Right Subclavian Vein, Percutaneous Approach (ICD-10-PCS; principal; 2019-11-12)
PROC: 0BH18EZ Insertion of Endotracheal Airway into Trachea, Via Natural or Artificial Opening Endoscopic (ICD-10-PCS; 2019-11-13)
PROC: 5A1945Z Respiratory Ventilation, 24-96 Consecutive Hours (ICD-10-PCS; 2019-11-13)
PROC: 4A023N7 Measurement of Cardiac Sampling and Pressure, Left Heart, Percutaneous Approach (ICD-10-PCS; 2019-11-17)
PROC: 027034Z Dilation of Coronary Artery, One Artery with Drug-eluting Intraluminal Device, Percutaneous Approach (ICD-10-PCS; 2019-11-17)
PROC: B2111ZZ Fluoroscopy of Multiple Coronary Arteries using Low Osmolar Contrast (ICD-10-PCS; 2019-11-17)
DX: A41.9 Sepsis, unspecified organism (principal); I50.21 Acute systolic (congestive) heart failure; J96.01 Acute respiratory failure with hypoxia; J15.6 Pneumonia due to other Gram-negative bacteria; I21.4 Non-ST elevation (NSTEMI) myocardial infarction; E87.2 Acidosis; N39.0 Urinary tract infection, site not specified; R57.9 Shock, unspecified; I11.0 Hypertensive heart disease with heart failure; F41.9 Anxiety disorder, unspecified; I25.10 Atherosclerotic heart disease of native coronary artery without angina pectoris; R73.9 Hyperglycemia, unspecified; K21.9 Gastro-esophageal reflux disease without esophagitis; Z90.12 Acquired absence of left breast and nipple; Z98.42 Cataract extraction status, left eye; Z98.41 Cataract extraction status, right eye; Z79.2 Long term (current) use of antibiotics; Z79.891 Long term (current) use of opiate analgesic; Z79.899 Other long term (current) drug therapy; Z85.3 Personal history of malignant neoplasm of breast; Z03.818 Encounter for observation for suspected exposure to other biological agents ruled out; Z99.81 Dependence on supplemental oxygen; Z90.10 Acquired absence of unspecified breast and nipple